=== PATIENT | male | born 1975 | race Caucasian/White ===

== ENCOUNTER 2016-10-30 09:38 | Observation (INO) | payer OTHER ==
[2016-10-30] MEDS ORDERED: NS 0.9% 1000 ML* 2,000 ML IV ONE (09:39)
[2016-10-30] MEDS ORDERED: Ondansetron INJ* 2 MG/ML VIAL IV ONE (09:42)
[2016-10-30 10:12] LABS: Hematocrit 51 % (42-52); Hemoglobin 16.6 g/dl (14.0-18.0); Mean Corpuscular HGB Conc 33 g/dl (31-36); Mean Corpuscular Hemoglobin 28 pg (27-31); Mean Corpuscular Volume 84 fL (80-94); Mean Platelet Volume 10 um3 (7.4-10.4); Red Blood Count 6.01 10^6/ul (4.0-5.4); Red Cell Distribution Width 15 % (10.5-15); White Blood Count 9.8 10^3/ul (3.5-10.8)
[2016-10-30 10:35] LABS: ALT 26 U/L (7-52); AST 36 U/L (13-39); Albumin 4.8 g/dL (3.2-5.2); Alkaline Phosphatase 83 U/L (34-104); Anion Gap 13 mmol/L (2-11); BUN/Creatinine Ratio 10.9 (8-20); Blood Urea Nitrogen 17 mg/dL (6-24); CO2 Carbon Dioxide 21 mmol/L (22-32); Calcium 9.8 mg/dL (8.6-10.3); Chloride 104 mmol/L (101-111); EGFR Non-African American 49.8 (>60); Globulin 3.7 g/dL (2-4); Glucose 126 mg/dL (70-100); Magnesium 1.7 mg/dL (1.9-2.7); Potassium 5.2 mmol/L (3.5-5.0); Sodium 138 mmol/L (133-145); Total Protein 8.5 g/dL (6.4-8.9)
[2016-10-30 10:39] LABS: Troponin I 0.12 ng/mL (<0.04)
[2016-10-30] MEDS ORDERED: Acetaminophen TAB* 325 MG PO PRN (10:58)
[2016-10-30] MEDS ORDERED: Magnesium Sulfate 1 GM IV* 1 GM/100 ML BAG IV ONE (11:00)
[2016-10-30 11:08] LABS: Alcohol < 10 mg/dL (<10)
--- NOTE | 2016-10-30 11:15 | RAD ---
INDICATION: Syncope during a marathon. COMPARISON: None. TECHNIQUE: Single AP portable view of the chest was obtained. FINDINGS: Image quality is compromised due to the relative inferiority of a portable chest x-ray. The heart and mediastinum exhibit normal size and contour. The lungs are grossly clear. There is no evidence of a large pleural effusion. Visualized bones are normal for the patient's age. IMPRESSION: No radiographic evidence for acute cardiopulmonary abnormality on this portable chest x-ray.
[2016-10-30 11:18] LABS: TSH (Thyroid Stimulating Horm) 2.89 mcIU/mL (0.34-5.60)
--- NOTE | 2016-10-30 11:51 | ED ---
Linda Dumont Alok, scribed for Speedy Waters MD on 10/30/16 at 0945 . Syncope/Near Syncope - HPI Summary HPI Summary: 41M presents to the ED BIBA following syncope while running in local marathon event. Pt presents diaphoretic, A&O x3, but does not remember running in the marathon this morning. Pt notes chest pressure at the mid-sternal. Pt notes weakness, N/V. Pt denies LOFTON or dizziness. Pt drinks ETOH occasionally. - History Of Current Complaint Time Seen by Provider: 10/30/16 09:39 Hx Obtained From: Patient Onset/Duration: Resolved Timing: Constant Context: Loss Of Consciousness Activity At Onset: Exertion Aggravating Factor(s): Nothing Alleviating Factor(s): Nothing Associated Signs And Symptoms: Chest Pain - pressure, Diaphoresis, Vomiting, Weakness - Allergies/Home Medications Home Medications: Home Medications NK [No Home Medications Reported] 10/30/16 [History Confirmed 10/30/16] PMH/Surg Hx/FS Hx/Imm Hx Endocrine/Hematology History: Denies: Hx Diabetes Cardiovascular History: Denies: Hx Hypertension - Family History Known Family History: Negative: Cardiac Disease, Hypertension, Diabetes - Social History Occupation: Employed Full-time Lives: With Family Alcohol Use: Occasionally Hx Tobacco Use: No Smoking Status (MU): Never Smoked Tobacco Review of Systems Positive: Skin Diaphoresis. Negative: Fever Positive: Chest Pain - "pressure" Positive: Vomiting, Nausea Neurological: Other - Negative: Dizziness Negative: Headache All Other Systems Reviewed And Are Negative: Yes Physical Exam - Summary Physical Exam Summary: VITAL SIGNS: Reviewed. GENERAL: Patient is a well-developed and nourished male who is lying comfortable in the stretcher. Patient is not in any acute respiratory distress. HEAD AND FACE: No signs of trauma. No ecchymosis, hematomas or skull depressions. No sinus tenderness. EYES: PERRLA, EOMI x 2, No injected conjunctiva, no nystagmus. EARS: Hearing grossly intact. Ear canals and tympanic membranes are within normal limits. MOUTH: Oropharynx within normal limits. NECK: Supple, trachea is midline, no adenopathy, no JVD, no carotid bruit, no c- spine tenderness, neck with full ROM. CHEST: Symmetric, no tenderness at palpation. Tachycardic with irregularly irregular rhythm LUNGS: Clear to auscultation bilaterally. No wheezing or crackles. CVS: Regular rate and rhythm, S1 and S2 present, no murmurs or gallops appreciated. ABDOMEN: Soft, non-tender. No signs of distention. No rebound no guarding, and no masses palpated. Bowel sounds are normal. EXTREMITIES: FROM in all major joints, no edema, no cyanosis or clubbing. NEURO: Alert and oriented x 3. No acute neurological deficits. Speech is normal and follows commands. Doesn't remember running today. SKIN: Pt is diaphoretic and clammy Triage Information Reviewed: Yes Vital Signs On Initial Exam: Initial Vital Signs Temp 97.5 F 10/30/16 10:10 Pulse 150 10/30/16 10:10 Resp 42 10/30/16 10:10 BP 104/76 10/30/16 10:10 Pulse Ox 96 10/30/16 10:10 Vital Signs Reviewed: Yes Diagnostics - Vital Signs Vital Signs Temp Pulse Resp BP Pulse Ox 10/30/16 10:10 97.5 F 150 42 104/76 96 - Laboratory Lab Results: Lab Results 10/30/16 10/30/16 10/30/16 Range/Units 10:00 10:00 10:00 WBC 9.8 (3.5-10.8) 10^3/ul RBC 6.01 H (4.0-5.4) 10^6/ul Hgb 16.6 (14.0-18.0) g/dl Hct 51 (42-52) % MCV 84 (80-94) fL MCH 28 (27-31) pg MCHC 33 (31-36) g/dl RDW 15 (10.5-15) % Plt Count 288 (150-450) 10^3/ul MPV 10 (7.4-10.4) um3 Neut % (Auto) 50.4 (38-83) % Lymph % (Auto) 43.0 (25-47) % Gentry % (Auto) 5.3 (1-9) % Eos % (Auto) 0.7 (0-6) % Baso % (Auto) 0.6 (0-2) % Absolute Neuts (auto) 5.0 (1.5-7.7) 10^3/ul Absolute Lymphs (auto) 4.2 (1.0-4.8) 10^3/ul Absolute Monos (auto) 0.5 (0-0.8) 10^3/ul Absolute Eos (auto) 0.1 (0-0.6) 10^3/ul Absolute Basos (auto) 0.1 (0-0.2) 10^3/ul Absolute Nucleated RBC 0.02 10^3/ul Nucleated RBC % 0.2 Sodium 138 (133-145) mmol/L Potassium 5.2 H (3.5-5.0) mmol/L Chloride 104 (101-111) mmol/L Carbon Dioxide 21 L (22-32) mmol/L Anion Gap 13 H (2-11) mmol/L BUN 17 (6-24) mg/dL Creatinine 1.56 H (0.67-1.17) mg/dL Est GFR ( Amer) 64.0 (>60) Est GFR (Non-Af Amer) 49.8 (>60) BUN/Creatinine Ratio 10.9 (8-20) Glucose 126 H (70-100) mg/dL Lactic Acid 4.8 H* (0.5-2.0) mmol/L Calcium 9.8 (8.6-10.3) mg/dL Magnesium 1.7 L (1.9-2.7) mg/dL Total Bilirubin 1.60 H (0.2-1.0) mg/dL AST 36 (13-39) U/L ALT 26 (7-52) U/L Alkaline Phosphatase 83 (34-104) U/L Troponin I 0.12 H* (<0.04) ng/mL B-Natriuretic Peptide ( - 100) pg/mL Total Protein 8.5 (6.4-8.9) g/dL Albumin 4.8 (3.2-5.2) g/dL Globulin 3.7 (2-4) g/dL Albumin/Globulin Ratio 1.3 (1-3) TSH 2.89 (0.34-5.60) mcIU/mL Serum Alcohol < 10 (<10) mg/dL 10/30/16 Range/Units 10:00 WBC (3.5-10.8) 10^3/ul RBC (4.0-5.4) 10^6/ul Hgb (14.0-18.0) g/dl Hct (42-52) % MCV (80-94) fL MCH (27-31) pg MCHC (31-36) g/dl RDW (10.5-15) % Plt Count (150-450) 10^3/ul MPV (7.4-10.4) um3 Neut % (Auto) (38-83) % Lymph % (Auto) (25-47) % Gentry % (Auto) (1-9) % Eos % (Auto) (0-6) % Baso % (Auto) (0-2) % Absolute Neuts (auto) (1.5-7.7) 10^3/ul Absolute Lymphs (auto) (1.0-4.8) 10^3/ul Absolute Monos (auto) (0-0.8) 10^3/ul Absolute Eos (auto) (0-0.6) 10^3/ul Absolute Basos (auto) (0-0.2) 10^3/ul Absolute Nucleated RBC 10^3/ul Nucleated RBC % Sodium (133-145) mmol/L Potassium (3.5-5.0) mmol/L Chloride (101-111) mmol/L Carbon Dioxide (22-32) mmol/L Anion Gap (2-11) mmol/L BUN (6-24) mg/dL Creatinine (0.67-1.17) mg/dL Est GFR ( Amer) (>60) Est GFR (Non-Af Amer) (>60) BUN/Creatinine Ratio (8-20) Glucose (70-100) mg/dL Lactic Acid (0.5-2.0) mmol/L Calcium (8.6-10.3) mg/dL Magnesium (1.9-2.7) mg/dL Total Bilirubin (0.2-1.0) mg/dL AST (13-39) U/L ALT (7-52) U/L Alkaline Phosphatase (34-104) U/L Troponin I (<0.04) ng/mL B-Natriuretic Peptide 20 ( - 100) pg/mL Total Protein (6.4-8.9) g/dL Albumin (3.2-5.2) g/dL Globulin (2-4) g/dL Albumin/Globulin Ratio (1-3) TSH (0.34-5.60) mcIU/mL Serum Alcohol (<10) mg/dL Result Diagrams: 10/30/16 10:00 10/30/16 10:00 Lab Statement: Any lab studies that have been ordered have been reviewed, and results considered in the medical decision making process. - Radiology CXR Xray Interpretation: Positive (See Comments) - IMPRESSION: No radiographic evidence for acute cardiopulmonary abnormality on this portable chest x-ray. Radiology Interpretation Completed By: Radiologist - EKG 0946 Cardiac Rate: Tachycardia - 145 bpm EKG Rhythm: Sinus Tachycardia EKG Interpretation: No ST elevations Course/Dx Course Of Treatment: 41M presents to the ED BIBA following syncope while running in local marathon event. Pt presents diaphoretic, A&O x3, but does not remember running in the marathon this morning. Pt notes chest pressure at the mid-sternal. Pt notes weakness, N/V. Pt denies LOFTON or dizziness. Pt drinks ETOH occasionally. Pt initally arrived diaphoretic, sinus tach 151 bpm. Pt was placed on monator and two IV were obtained. Pt was given 2 L IV fluids and HR decreased to 100 bpm. This caused N/V so pt was given Zofran. Pt is feeling better and no longer has CP. EKG shows sinus tachy with no ST elevations. Test results show Potassium of 5.2 H, Creatinine of 1.56 H, Troponin of 0.12 H. Possibility that troponin is secondary to muscle wasting which can include heart muscle. However due to troponin and syncope with CP we must r/o acute coronary syndrome. Discussed case with Dr. Dunbar who accepts pt for admit. Pt is hemodynamically stable, A&Ox3, and CP free. - Diagnoses Differential Diagnosis/HQI/PQRI: Positive: Dysrhythmia, Hypovolemia, Vasovagal Episode Provider Diagnoses: Syncope, Chest pain, Troponin r/o acute coronary syndrome - Physician Notifications Discussed Care of Patient With: Lena Dunbar - Will admit pt to [facility] [place] Time Discussed With Above Provider: 10:56 Discharge - Discharge Plan Condition: Stable Disposition: ADMITTED TO [facility] documentation as recorded by the Linda ojeda Alok accurately reflects the service I personally performed and the decisions made by , Speedy Waters MD.
[2016-10-30] MEDS ORDERED: Ondansetron INJ* 2 MG/ML VIAL IV PRN (12:32)
--- NOTE | 2016-10-30 12:47 | RAD ---
INDICATION: Syncope towards the end of running a narrow thigh and COMPARISON: None. TECHNIQUE: Contiguous axial sections of the brain were obtained from the skull base to the vertex without contrast. Thin section reformats in the sagittal and coronal planes were created and independently reviewed. FINDINGS: The ventricles, cisterns and sulci are within normal limits. The estrada-white matter differentiation is adequately maintained and there is no sulcal effacement. There is heterogeneous attenuation at the anterior aspect of the bethany (axial image 6 of 32) that may simply be the consequence of streak artifact. On the sagittal plane image (image 41 of 81) there is a 1.6 cm slightly hypodense area at the anterior aspect of the bethany. Again, this simply may be the consequence of streak artifact. There is no evidence for intracranial hemorrhage. No significant focal osseous abnormality is present. The visualized portion of the paranasal sinuses and mastoid air cells appear clear. IMPRESSION: There is a highly questionable heterogeneous low-attenuation focus measuring 1.6 cm at the anterior aspect of the bethany. This may simply be the result of streak artifact created by the temporal bones. The patient is exhibiting any symptoms that would correlate to a bethany lesion and this finding can be likely confidently characterized with MRI of the brain. The brain is otherwise normal.
[2016-10-30] MEDS: NS 0.9% 1000 ML* 1,000 ML IV SCH ×2 (13:16→22:04)
[2016-10-30 13:41] LABS: Creatine Kinase 460 U/L (10-223)
[2016-10-30 14:21] LABS: BUN/Creatinine Ratio 16.4 (8-20); Calcium 8.2 mg/dL (8.6-10.3); EGFR African American 95.8 (>60); EGFR Non-African American 74.5 (>60); Potassium 4.1 mmol/L (3.5-5.0)
[2016-10-30 14:25] LABS: Troponin I 0.29 ng/mL (<0.04)
--- NOTE | 2016-10-30 15:22 | HP ---
HISTORY AND PHYSICAL: DATE OF ADMISSION: 10/30/16 PRIMARY CARE PROVIDER: None. CHIEF COMPLAINT: Syncope. HISTORY OF PRESENT ILLNESS: Aguila Childers is a 41-year-old male with no significant past medical history, who presents to the hospital after he was found down during a marathon today. Patient stated that he was running a half marathon and he remembers "pieces of it." His stated that he must have been close to the finish line, which is approximately 13 miles. He collapsed. He was brought into the emergency department with ice packs all over his body. He has no clear memory of what happened just before and after his syncopal episode. He has no complaints of chest pain or shortness of breath, and he stated that he felt well throughout his marathon. His troponin was 0.1, he has acute renal failure. His lactic acid is elevated. He is going to be placed on overnight observation with a diagnosis of syncope and elevated troponin. PAST MEDICAL HISTORY: Childhood asthma. MEDICATIONS: None. ALLERGIES: None. FAMILY HISTORY: Negative for cancer, diabetes, or heart disease in both parents. SOCIAL HISTORY: Patient denies any tobacco or drug use. He drinks alcohol rarely. He works in [employer] at [employer]. He is and his Megan is the surrogate. REVIEW OF SYSTEMS: Patient stated that he trains for marathon on an almost daily basis approximately a couple of miles a day. This was his first marathon this season. He had been in his usual state of health and he stated that he thought he kept himself hydrated. All the remaining 14 systems were reviewed with the patient and were negative. PHYSICAL EXAMINATION GENERAL: This is a very pleasant 41-year-old male who is in no acute distress. Alert, awake, and oriented x3. VITAL SIGNS: Blood pressure of 102/58, heart rate of 89 and regular, respiratory rate 14, oxygen saturation 99% on room air, temperature of 98.9. HEENT: Head atraumatic, normocephalic. Eyes: Pupils equal, reactive to light and accommodation. Oropharynx clear. Mucosa moist. NECK: Supple. No JVD. No bruits bilaterally. RESPIRATORY: Clear to auscultation bilaterally. CARDIOVASCULAR: Regular rate and rhythm, no murmur. ABDOMEN: Soft and nontender. Bowel sounds present in all 4 quadrats. EXTREMITIES: There is no edema. Pulses +2 bilaterally. No clubbing or cyanosis. NEUROLOGIC: Speech clear. Cranial nerves II through XII grossly intact. Motor strength is 5/5 bilaterally. SKIN: On evaluation of the skin, no ecchymotic areas or rashes noted. PSYCHIATRIC: Oriented x3, with no evidence of anxiety or depression. LABORATORY DATA AND STUDIES: Include white blood cell count of 9.8, hemoglobin 16.6, hematocrit 51, and platelets 288. Sodium is 138, potassium 5.2, chloride 104, carbon dioxide 21, BUN 17, creatinine 1.56. Anion gap was 13. Lactic acid was 4.8. Liver function test showed elevation of total bilirubin of 1.6. Magnesium was 1.7. Troponin was 0.12. CPK level was pending at the time of dictation. TSH was 2.89. Patient's EKG on presentation showed sinus tachycardia with heart rate of 145 beats per minute, with posterior QRS axis. There was no old EKG available for comparison. Portable chest x-ray was unremarkable. Patient's CT of the brain is pending at the time of dictation. ASSESSMENT AND PLAN: 1. 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 Patient presents with mild lactic acidosis, acute renal failure, elevated troponin, all most likely related to marked dehydration and may be heat exhaustion. It is also possible that he had a syncopal episode because of arrhythmia. Unfortunately, patient does not remember any prodromal symptoms and he does not remember what happened immediately after his syncope. At this point, patient is going to be placed on overnight observation on telemetry monitored bed. We will obtain transthoracic echocardiogram. We will rehydrate him with intravenous fluids. I suspect his acute renal failure is due to dehydration. We will check his lactic acid and troponin in a couple of hours. I will also ask Cardiology to see patient in consultation. 2. For DVT prophylaxis, patient is going to be encouraged with ambulation. He is low risk. Approximately 55 minutes were spent on admission of this patient, more than half the time was spent face to face with the patient during the interview and physical exam. [id number] #: [id number] MTDD
--- NOTE | 2016-10-30 15:47 | CONS ---
CC: James Griffiths MD CARDIOLOGY EVALUATION REPORT: DATE OF CONSULT: 10/30/16 CONSULTING PHYSICIAN: Dr. Dunbar. REASON FOR EVALUATION: Syncope, elevated troponins. HISTORY OF PRESENT ILLNESS: This is a very pleasant 41-year-old gentleman who is avid runner and has ran 9 to 10 marathons since 2005. He said he runs 6 miles several times a week and runs 30 miles on the weekends. He was in a half marathon race today and he apparently had a syncopal episode and does not remember the details. He said that he was running fairly well carrying his own water and stopping at hydration stations. He said he was trying to have a personal best and pushed it. He said it was fairly warm and that he had run this route several times in the last few weeks in anticipation of the race and had not had a problem. Today at about approximately mile 11 out of 13 he apparently collapsed to the ground. We do not have the full details, but the details obtained were from the admitting physician, Dr. Dunbar and from his that the patient does not recall the episode. The patient apparently was found by the policemen and was talking, he was seen by greenhouse transplanter and brought in to the Emergency Room. By the time he got to the Emergency Room he was diaphoretic, but did not remember running in the [place]. The ER report reports some chest pressure at mid sternum, but he denies anything now. He apparently had some nausea and vomiting earlier as well. Temperature is 97.5, but according to Dr. Dunbar he had gotten some ice packs, his pulse was 150, respiratory rate 42, blood pressure 104/76, pulse ox 96%, lactic acid was 4.8, magnesium 1.7, total bili 1.6, troponin 0.12. EKG sinus tachycardia and he was admitted for further evaluation with the elevated troponin, syncope, and chest pressure. The patient has received approximately 2 bags of IV fluids and reports he is feeling better. He tried to stand up, but felt a little lightheaded. He said he still feels a little hazy. At the bedside are his and his mother. He denies any chest pain, denies remembering having any chest pain with running or any palpitations. Denies seizure activity or incontinence although his memory of the event is limited. He denies any previous syncopal episodes, but said that there was a race in 2012 in [place] where he had to stop fci through because of nausea. He has a history of asthma as a child, but denies any cardiac history. No hypertension, hyperlipidemia, or diabetes. No tobacco use. He drinks about 1 to 2 alcoholic beverages a week, but none the night before. He drinks 1 cup of coffee a day, which is recent. ALLERGIES: He denies any allergies. PAST SURGICAL HISTORY: Includes meatal stenosis opening as a child. FAMILY HISTORY: His mother and father is 66 and alive and well. Sister in a motor vehicle accident. He is . He has 2 daughters. 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 REVIEW OF SYSTEMS: Review of systems times 10 was negative except as above. PHYSICAL EXAMINATION: He is a well-developed, well-nourished gentleman, no apparent distress, appearing young and fit. Blood pressure 108/68, pulse of 101 , O2 sats 96%. Atraumatic, normocephalic. Extraocular muscles intact. Sclerae anicteric. No significant JVD. Carotids 2+ without bruits. No cervical adenopathy. Cardiac Exam: S1, S2 without murmurs, gallops or rub. Chest was clear. No CVAT. Abdomen: Bowel sounds present nontender. Femoral pulses intact without bruits. Distal pulses intact. No edema. Motor strength 5/5 bilaterally. Deep tendon reflexes 2/4. Alert and oriented to place and person. When I asked the date he did not know the year. DIAGNOSTIC STUDIES/LABORATORY DATA: EKG from 945 revealed sinus tach 145 with no acute changes, possible left atrial enlargement. Chest x-ray negative by report and he had a CT scan of his brain, which revealed highly questionable heterogeneous low attenuation focus measuring 1.6 cm at the anterior aspect of the bethany, possibly due to artifact that was suggested a consideration of an MRI , if his clinical situation suggests. His labs include fairly normal CBC, but he had some derangements on his chemistries including the potassium elevated at 5.2, CO2 low at 21, anion gap high at 13, BUN and creatinine of 17/1.56. Glucose is elevated at 126. Lactic acid elevated at 4.8, magnesium low 1.7, total bili elevated at 1.6 and troponin elevated at 0.18. TSH was normal. IMPRESSION: Mr. Childers had an episode of syncope while running a marathon. Possibilities include cardiovascular collapse due to arrhythmia or infarct/ ischemia. I do suspect that dehydration has contributed to this and this presentation may be related to heat stroke and severe metabolic derangements due to severe dehydration. In any event I did discuss the findings with him and his and his mother at the bedside. I did explain the potential life-threatening dangers of dehydration and over exertion especially at extremes of heat and extremes of competitive running. I did explain the need to continue to watch him and hydrate him and observe for resolution of his symptoms and his cognitive issues. For the time being I recommend followin. I would repeat his EKG, electrolytes, troponins, and follow them serially over next 24 hours. 2. He is to have an echocardiogram. 3. I would suggest a consideration of evaluation for ischemic heart disease at some point, perhaps as an inpatient if his symptoms and clinical course suggest , or perhaps as an outpatient if his troponins and symptoms resolve. He understands he points of avoiding dehydration and avoiding excessive running and running in extremes of heat. [id number] #: [id number] RADHA
[2016-10-31 05:37] LABS: Hematocrit 38 % (42-52); Hemoglobin 12.3 g/dl (14.0-18.0); Mean Corpuscular HGB Conc 33 g/dl (31-36); Mean Corpuscular Hemoglobin 28 pg (27-31); Mean Corpuscular Volume 86 fL (80-94); Mean Platelet Volume 9 um3 (7.4-10.4); Red Blood Count 4.41 10^6/ul (4.0-5.4); Red Cell Distribution Width 16 % (10.5-15); White Blood Count 9.2 10^3/ul (3.5-10.8)
[2016-10-31 05:55] LABS: BUN/Creatinine Ratio 14.6 (8-20); Calcium 7.9 mg/dL (8.6-10.3); EGFR African American 122.4 (>60); EGFR Non-African American 95.2 (>60); Potassium 3.3 mmol/L (3.5-5.0)
[2016-10-31] MEDS: NS 0.9% 1000 ML* 1,000 ML IV SCH (06:05)
[2016-10-31] MEDS ORDERED: Potassium Chloride LIQUID* 20 MEQ PACKET PO ONE (07:28)
[2016-10-31 08:11] LABS: Magnesium 2.1 mg/dL (1.9-2.7)
[2016-10-31] MEDS: KCL 10 MEQ/50 ML IVPREMIX* 10 MEQ/50 ML BAG IV SCH ×2 (08:17→10:08)
[2016-10-31 08:19] LABS: Troponin I 0.2 ng/mL (<0.04)
[2016-10-31] MEDS ORDERED: NS 0.9% w/ 20 Meq KCL 1000 ML* 1,000 ML IV SCH (09:00)
[2016-10-31] MEDS ORDERED: Aspirin TAB* 325 MG PO SCH (09:00)
--- NOTE | 2016-10-31 09:59 | RAD ---
INDICATION: Follow-up questionable abnormality in the bethany on the previous day CT of the brain. COMPARISON: CT of the brain October 30, 2016 TECHNIQUE: Contiguous axial sections of the brain were obtained from the skull base to the vertex without contrast. FINDINGS: The ventricles, cisterns and sulci are within normal limits. The estrada-white matter differentiation is adequately maintained and there is no sulcal effacement. No significant focal abnormality or mass effect is present. There is no evidence for intracranial hemorrhage. No significant focal osseous abnormality is present. The visualized portion of the paranasal sinuses and mastoid air cells appear clear. IMPRESSION: Normal CT of the brain.
[2016-10-31 11:16] VITALS: BP 106/63
[2016-10-31] MEDS ORDERED: Potassium Chlor TAB* 20 MEQ TAB.ER PO ONE (15:03)
--- NOTE | 2016-10-31 15:06 | ECHO ---
Patient: ANNA SAUCEDO [facility] Rec#: [id number] : 1975 Date: 10/31/2016 Age: 41y Height: 167.6 cm / 66.0 in Weight: 65.8 kg / 145.0 lbs Sex: M BSA: 1.7 Room#: 438 Admit Date#: 10/30/2016 Type: Inpatient Referring: Lena Dunbar MD Reading: James Griffiths MD [employer] Detail: Tori Andrews RN RDCS Transthoracic Echocardiogram Indication: Syncope, elevated troponins BP: 109/51 HR: 62 Rhythm: Bradycardia Findings History: Childhood asthma Technical Comments: The study quality is fair. Completed at 1445. Left Ventricle: The left ventricular chamber size is normal.false tendon noted in the apex. Global left ventricular wall motion and contractility are within normal limits. There is normal left ventricular systolic function. The estimated ejection fraction is 50-55%. closer to 55%. Normal left ventricular diastolic filling is observed. Left Atrium: The left atrium is mildly dilated. Right Ventricle: The right ventricular cavity size is normal. The right ventricular global systolic function is normal. Right Atrium: The right atrial cavity size is normal. Aortic Valve: The aortic valve is trileaflet. The aortic valve leaflets are mildly thickened. There is a trace of aortic regurgitation. There is no evidence of aortic stenosis. Mitral Valve: The mitral valve leaflets are mildly thickened. There is mild mitral regurgitation. There is no evidence of mitral stenosis. Tricuspid Valve: The tricuspid valve leaflets are normal. There is trace to mild tricuspid regurgitation. No pulmonary hypertension is noted. There is no tricuspid stenosis. Pulmonic Valve: The pulmonic valve appears normal. There is trace to mild pulmonic regurgitation. There is no pulmonic stenosis. Pericardium: There is no significant pericardial effusion. Aorta: There is no dilatation of the ascending aorta. There is no dilatation of the aortic arch. There is no dilation of the aortic root. Pulmonary Artery: The main pulmonary artery appears normal. Venous: The inferior vena cava is dilated. There is less than 50% respiratory change in the inferior vena cava dimension. Summary: There was not any prior study for comparison. Conclusions sinus bradycardia with 2 pvc's near the end of the study. Global left ventricular wall motion and contractility are within normal limits. The left ventricular chamber size is normal; false tendon noted in the apex. The estimated ejection fraction is 50-55%, closer to 55%. The left atrium is mildly dilated. There is mild mitral regurgitation. There is trace to mild tricuspid regurgitation. There is trace to mild pulmonic regurgitation. reviewed with Dr. Dunbar Measurements Name Value Normal Range RVDdMajor (2D) 4.4 cm (2.2 - 4.4) RAd ISD 4CH 4.9 cm (3.4 - 4.9) RA (A4C)W 4.1 cm (2.9 - 4.6) IVSd (2D) 1 cm (0.6 - 1) LVPWd (2D) 1 cm (0.6 - 1) LVIDd (2D) 5.1 cm (3.6 - 5.4) LVIDs (2D) 3.3 cm - LV FS (2D) 35 % (25 - 45) Aortic Annulus 2.4 cm (1.4 - 2.6) Ao root diameter (2D) 3.2 cm (2.1 - 3.5) Ascending Ao 2.8 cm (2.1 - 3.4) Aortic arch 2.4 cm (1.8 - 3.4) LA dimension (AP) 2D 3.7 cm (2.3 - 3.8) LAd ISD 4CH 5.5 cm (2.9 - 5.3) LA ISD 4CH W 4.2 cm (2.5 - 4.5) Name Value Normal Range LA ESV SP 4CH (A/L) 63 ml - LA ESV SP 2CH (A/L) 77 ml - LA ESV BP (A/L) 70 ml - LA ESV BP (A/L) index 39.8 ml/m2 - LA ESV SP 4CH (MOD) 53 ml - LA ESV SP 2CH (MOD) 74 ml - Name Value Normal Range MV E-wave Vmax 1.1 m/sec - MV deceleration time 161 msec - MV A-wave Vmax 0.63 m/sec - MV E:A ratio 1.8 ratio - LV septal e' Vmax 0.14 m/sec - LV lateral e' Vmax 0.14 m/sec - LV E:e' septal ratio 7.9 ratio - LV E:e' lateral ratio 7.9 ratio - Name Value Normal Range AV Vmax 1.5 m/sec - AV VTI 33.6 cm - AV peak gradient 8.1 mmHg - AV mean gradient 5.1 mmHg - LVOT Vmax 1.3 m/sec - LVOT VTI 26.6 cm - LVOT peak gradient 6.6 mmHg - LVOT mean gradient 3.8 mmHg - MEJIA Vmax 1.2 m/sec - Name Value Normal Range TR Vmax 2.3 m/sec - TR peak gradient 21 mmHg - RAP 15 mmHg - RVSP 36 mmHg - IVC diameter 2.4 cm - Name Value Normal Range PV Vmax 0.77 m/sec -
--- NOTE | 2016-11-01 05:31 | DS ---
CC: Dr. Griffiths * DISCHARGE SUMMARY: DATE OF ADMISSION: 10/30/16 DATE OF DISCHARGE: 10/31/16 DISCHARGE DIAGNOSES: Syncope, elevated troponin, acute renal failure due to heat exhaustion and excessive exercise during marathon run. SECONDARY DIAGNOSIS: None. MEDICATIONS AT DISCHARGE: None. CONSULTATIONS: During the hospital stay included Dr. Griffiths from Cardiology. LABORATORY DATA AND STUDIES: Performed during the hospital stay included: On 10/31/16, white blood cell count of 9.2, hemoglobin of 12.3, hematocrit of 38, and platelets of 130. Sodium was 138, potassium 3.3, chloride 109, carbon dioxide 24, BUN 13, creatinine 0.89. Liver function was unremarkable. Total CPK on the day of discharge was 1130. The patient's troponin at its peak was 0.3. Lactic acid on admission was 4.8. The patient had initial brain CT performed on 10/30/16 showing impression: "There is a highly questionable heterogenous low attenuation focus measuring 1.6 cm at the anterior aspect of the beth[place]. This may simply be result of streak artifact created from temporal bones. The patient is exhibiting symptoms that would correlate to bethany lesion and this finding can be likely confidently characterized with MRI of the brain. The brain is otherwise normal." Repeat CT brain to clarify this abnormality obtained on 10/31/16, impression: "Normal CT of the brain." An echocardiogram of the brain was transthoracic and was performed by Dr. Griffiths. Verbal report that I received by Dr. Griffiths showed possibility of very small motion abnormality at the apex, otherwise no abnormalities noted. The EF was noted to be normal. The formal transcribed report is pending at the time of dictation. 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 The patient had nausea and vomiting afterwards and was slightly confused. In fact, he had problems recalling what happened to him after he arrived to the emergency room. Due to that, the CT of the brain was performed which showed an abnormality that could be motion artifact which was clarified by repeat CT of the brain on the day of discharge, which showed normal brain. Dr. Griffiths was asked to see the patient in consultation due to elevated troponin. The patient's troponin was most likely elevated due to demand ischemia during excessive and strenuous exercise. Nevertheless, Dr. Griffiths recommends an outpatient cardiac stress test which will be set up by his office. Until the stress test is performed, the patient is to not perform strenuous exercise and no running after discharge. DIET AT DISCHARGE: Regular with plenty of fluids and electrolyte replacement. Please also note that the patient's CPK was still mildly elevated at discharge at above 1000, but the patient is tolerating p.o. diet and he is advised to drink plenty of liquids after discharge. The patient has no primary care provider but he is recommended to set up a followup with a primary care provider of his choice in approximately 1 to 2 weeks after discharge. PHYSICAL EXAM AT DISCHARGE: Unchanged from admission. [id number]/[facility] #: [id number] RADHA
== END 2016-10-31 15:30 | disposition home or self-care (01) ==
LOC: ED 09:38 → MEDTELE 10:55
PROVIDERS: ADMIT Internal Medicine; ATTEND Internal Medicine
DX: R55 Syncope and collapse (principal); R74.8 Abnormal levels of other serum enzymes; N17.9 Acute kidney failure, unspecified; R00.1 Bradycardia, unspecified; I51.7 Cardiomegaly; Z79.899 Other long term (current) drug therapy
CPT/HCPCS: 36415; 70450; 71010; 80048; 80053; 80320; 82550; 83605; 83735; 83880; 84443; 84484; 85025; 93005; 93306; 96361; 96365; 96366; 99283; A9270-GY; G0378; G0480; J3480